=== PATIENT | male | born 1995 | race Caucasian/White ===

== ENCOUNTER 2016-08-29 18:25 | Emergency (ER) ==
[2016-08-29] MEDS ORDERED: diphenhydrAMINE 25 MG CAP As Ordered ONE (20:17)
[2016-08-29] MEDS ORDERED: predniSONE 20 MG TAB As Ordered ONE (20:18)
[2016-08-29] MEDS ORDERED: OMEPRAZOLE 20 MG CAP As Ordered ONE (20:20)
--- NOTE | 2016-08-29 20:31 | EDDOCDS ---
Physician Documentation [facility] Name: oJse Washburn Age: 21 yrs Sex: Male : 1995 Arrival Date: 08/29/2016 Time: 18:25 Bed I10 / 23 Private MD: CABRERA Crowell Disposition: 08/29/16 20:17 Discharged to Home/Self Care. Impression: Contact urticaria. - Condition is Stable. - Discharge Instructions: Contact Dermatitis. - Prescriptions for Prilosec 20 mg Oral Capsule - take 1 capsule by ORAL route once daily; 10 capsule. Prednisone 10 mg Oral Tablet - take 1 tablet by ORAL route as directed Day1-3:6 po,day4-5:5 po,day6-7: 4 po,day8-9:3 po,dxm17-30:2 po,day 12-14:1 po; 49 tablet. diphenhydramine HCl 50 mg Oral Capsule - take 1 capsule by ORAL route every 6 hours As needed; 30 capsule. - Medication Reconciliation, Local Pharmacy Hours form. - Follow up: CABRERA Crowell; When: 4 - 5 days; Reason: Recheck today's complaints, Continuance of care. - Problem is an acute exacerbation. - Symptoms are unchanged. Historical: - Allergies: no known allergies; - Home Meds: 1. none - PMHx: none; - PSHx: Hernia repair; - Social history: Smoking status: Patient states was never smoker of tobacco. No barriers to communication noted, The patient speaks fluent Bulgarian, Speaks appropriately for age. - Family history: Not pertinent. - : The pt / caregiver states he / she is not on anticoagulants. Home medication list is obtained from the patient. - Exposure Risk Screening:: None identified. Vital Signs: 08/29 18:28 BP 169 / 92; Pulse 77; Resp 16; Temp 96.5; Pulse Ox 100% ; Weight 81.65 kg / 180.01 elp lbs; Height 5 ft. 9 in. (175.26 cm); Pain 0/10; 18:28 Body Mass Index 26.58 (81.65 kg, 175.26 cm) elp MDM: 20:12 predniSONE 60 mg PO once; administer with food or milk ordered. ke 20:12 diphenhydrAMINE 50 mg PO once ordered. ke 20:12 omeprazole Delayed Release Capsule 20 mg PO once; swallow whole (do not crush or chew) ke OR open capsule, sprinkle contents over tablespoonful applesauce; swallow all immediately/do not chew pellets ordered. Administered Medications: 20:25 Drug: predniSONE 60 mg [prednisone 20 mg tablet (3 tabs)] Route: PO; cz 20:25 Drug: diphenhydrAMINE 50 mg [diphenhydramine 25 mg capsule (2 caps)] Route: PO; cz 20:25 Drug: omeprazole 20 mg [omeprazole 20 mg capsule,delayed release (1 caps)] Route: PO; cz Signatures: Linh Christensen RN RN srm Zecher, Calvin, RN RN cz Elsner, Karl, GARY RASPER MACHINE OPERATOR ke MTDD
--- NOTE | 2016-08-29 20:31 | EDDOCDS ---
Nurse's Notes [facility] Name: Jose Washburn Age: 21 yrs Sex: Male : 1995 Arrival Date: 08/29/2016 Time: 18:25 Bed I10 / 23 Private MD: CABRERA Crowell Diagnosis: Contact urticaria Presentation: 08/29 18:29 Presenting complaint: Patient states: ? poison oak- exposure 6 days. hives and swelling srm to hands and up arms. pt states its also on his "private area'. itchy. Presenting complaint: Patient states: was given benadryl and hydrocortisone cream by his medics. 18:29 Acuity: LINA Level 4 srm 18:29 Adult Sepsis Screening: The patient does not have new or worsening altered mentation. srm Patient's respiratory rate is less than 22. Systolic blood pressure is greater than 100. Patient has a qSOFA score of 0- Negative Sepsis Screen. Suicide/Homicide risk assessment- the patient denies having any suicidal and/or homicidal ideations and does not present with any other emotional, behavioral or mental health complaints. Status: The patient is an active duty director construction services. Transition of care: patient was not received from another setting of care. 18:29 Method Of Arrival: Walkin/Carried/[facility]std [facility] Triage Assessment: 18:32 General: Appears in no apparent distress, Behavior is appropriate for age, cooperative. srm Pain: Denies pain. 18:32 Pt Declines HIV testing. srm Historical: - Allergies: no known allergies; - Home Meds: 1. none - PMHx: none; - PSHx: Hernia repair; - Social history: Smoking status: Patient states was never smoker of tobacco. No barriers to communication noted, The patient speaks fluent Amharic, Speaks appropriately for age. - Family history: Not pertinent. - : The pt / caregiver states he / she is not on anticoagulants. Home medication list is obtained from the patient. - Exposure Risk Screening:: None identified. Screenin:29 Screening information is obtained from the patient. Fall risk: No risks identified. cz Assistance ADL's: requires no assistance with activities of daily living. Abuse/DV Screen: The patient / caregiver reports he/she is: not in a situation that causes fear, pain or injury. Nutritional screening: No deficits noted. home support is adequate. Assessment: 20:29 General: alert male with swelling and redness to bliateral hands. cz Vital Signs: 18:28 BP 169 / 92; Pulse 77; Resp 16; Temp 96.5; Pulse Ox 100% ; Weight 81.65 kg; Height 5 elp ft. 9 in. (175.26 cm); Pain 0/10; 18:28 Body Mass Index 26.58 (81.65 kg, 175.26 cm) elp Vitals: 18:28 Log In Time: August 29, 2016 at 18:26. elp ED Course: 18:27 Patient visited by Rahel Gonzalez PCA. elp 18:27 [facility] [place] [facility] is Private Physician. elp 18:27 Patient moved to Waiting elp 18:28 Patient visited by Rahel Gonzalez PCA. elp 18:28 Patient moved to Pre RCE elp 18:31 Triage Initiated srm 19:45 [facility] ke 19:45 Patient visited by Manjit Leyva FNP. ke 19:45 Patient visited by Manjit Leyva FNP. ke 19:45 Patient moved to I10 / 23 dsf 20:17 Socrates [facility] [place] [facility] is Referral Physician. ke 20:29 The patient / caregiver is instructed regarding the plan of care and ED course. cz 20:29 No IV's were initiated during this patient's visit. No procedures done that require cz assistance. Administered Medications: 20:25 Drug: predniSONE 60 mg [prednisone 20 mg tablet (3 tabs)] Route: PO; cz 20:25 Drug: diphenhydrAMINE 50 mg [diphenhydramine 25 mg capsule (2 caps)] Route: PO; cz 20:25 Drug: omeprazole 20 mg [omeprazole 20 mg capsule,delayed release (1 caps)] Route: PO; cz Order Results: There are currently no results for this order. Outcome: 20:17 Discharge ordered by Provider. ke 20:28 Discharge Assessment: Patient awake, alert and oriented x 3. No cognitive and/or cz functional deficits noted. Patient verbalized understanding of disposition instructions. patient administered narcotics - no. The following High Risk Discharge criteria are identified: None. Discharged to home ambulatory, with significant other. Condition: stable. Discharge instructions given to patient, Instructed on discharge instructions, follow up and referral plans. medication usage, Demonstrated understanding of instructions, medications, Pt was receptive of discharge instructions/ teaching. Prescriptions given X 3. No special radiology studies were completed. Property :Personal belongings accompany Pt. 20:30 Patient left the ED. cz Signatures: Linh Christensen, RN RN Conrad Ku RN RN Manjit Javier, MECHANICAL ENGINEERING COOP MECHANICAL ENGINEERING COOP Susanna Huff RN RN dsf Patchen, Erin, PCA PCA elp MTDD
--- NOTE | 2016-08-31 21:31 | EDDOCDS ---
Nurse's Notes [facility] Name: Jose Washburn Age: 21 yrs Sex: Male : 1995 Arrival Date: 08/29/2016 Time: 18:25 Bed I10 / 23 Private MD: CABRERA Crowell Diagnosis: Contact urticaria Presentation: 08/29 18:29 Presenting complaint: Patient states: ? poison oak- exposure 6 days. hives and swelling srm to hands and up arms. pt states its also on his "private area'. itchy. Presenting complaint: Patient states: was given benadryl and hydrocortisone cream by his medics. 18:29 Acuity: LINA Level 4 srm 18:29 Adult Sepsis Screening: The patient does not have new or worsening altered mentation. srm Patient's respiratory rate is less than 22. Systolic blood pressure is greater than 100. Patient has a qSOFA score of 0- Negative Sepsis Screen. Suicide/Homicide risk assessment- the patient denies having any suicidal and/or homicidal ideations and does not present with any other emotional, behavioral or mental health complaints. Status: The patient is an active duty coordinator volunteer services. Transition of care: patient was not received from another setting of care. 18:29 Method Of Arrival: Walkin/Carried/[facility]std [facility] Triage Assessment: 18:32 General: Appears in no apparent distress, Behavior is appropriate for age, cooperative. srm Pain: Denies pain. 18:32 Pt Declines HIV testing. srm Historical: - Allergies: no known allergies; - Home Meds: 1. none - PMHx: none; - PSHx: Hernia repair; - Social history: Smoking status: Patient states was never smoker of tobacco. No barriers to communication noted, The patient speaks fluent Kinyarwanda, Speaks appropriately for age. - Family history: Not pertinent. - : The pt / caregiver states he / she is not on anticoagulants. Home medication list is obtained from the patient. - Exposure Risk Screening:: None identified. Screenin:29 Screening information is obtained from the patient. Fall risk: No risks identified. cz Assistance ADL's: requires no assistance with activities of daily living. Abuse/DV Screen: The patient / caregiver reports he/she is: not in a situation that causes fear, pain or injury. Nutritional screening: No deficits noted. home support is adequate. Assessment: 20:29 General: alert male with swelling and redness to bliateral hands. cz Vital Signs: 18:28 BP 169 / 92; Pulse 77; Resp 16; Temp 96.5; Pulse Ox 100% ; Weight 81.65 kg; Height 5 elp ft. 9 in. (175.26 cm); Pain 0/10; 18:28 Body Mass Index 26.58 (81.65 kg, 175.26 cm) elp Vitals: 18:28 Log In Time: August 29, 2016 at 18:26. elp ED Course: 18:27 Patient visited by Rahel Gonzalez PCA. elp 18:27 [facility] [place] Private Physician. elp 18:27 Patient moved to Waiting elp 18:28 Patient visited by Rahel Gonzalez PCA. elp 18:28 Patient moved to Pre RCE elp 18:31 Triage Initiated srm 19:45 [facility] ke 19:45 Patient visited by Manjit Leyva FNP. ke 19:45 Patient visited by Manjit Leyva FNP. ke 19:45 Patient moved to I10 / 23 dsf 20:17 NICOLAS Crowell is Referral Physician. ke 20:29 The patient / caregiver is instructed regarding the plan of care and ED course. cz 20:29 No IV's were initiated during this patient's visit. No procedures done that require cz assistance. 08/30 10:14 T-Sheet-- Draft Copy was scanned into [employer] and attached to record. gb Administered Medications: 08/29 20:25 Drug: predniSONE 60 mg [prednisone 20 mg tablet (3 tabs)] Route: PO; cz 20:25 Drug: diphenhydrAMINE 50 mg [diphenhydramine 25 mg capsule (2 caps)] Route: PO; cz 20:25 Drug: omeprazole 20 mg [omeprazole 20 mg capsule,delayed release (1 caps)] Route: PO; cz Order Results: There are currently no results for this order. Outcome: 20:17 Discharge ordered by Provider. ke 20:28 Discharge Assessment: Patient awake, alert and oriented x 3. No cognitive and/or cz functional deficits noted. Patient verbalized understanding of disposition instructions. patient administered narcotics - no. The following High Risk Discharge criteria are identified: None. Discharged to home ambulatory, with significant other. Condition: stable. Discharge instructions given to patient, Instructed on discharge instructions, follow up and referral plans. medication usage, Demonstrated understanding of instructions, medications, Pt was receptive of discharge instructions/ teaching. Prescriptions given X 3. No special radiology studies were completed. Property :Personal belongings accompany Pt. 20:30 Patient left the ED. cz Signatures: Linh Christensen, RN Conrad Knapp RN RN Shawna King, Tyler Reg Manjit Weber, NUCLEAR REACTOR OPERATOR NUCLEAR REACTOR OPERATORSusanna Dimas RN RN Rahel Harris, EFRAIN WORKERS COMPENSATION EXAMINER elp Chart Complete MTDD
--- NOTE | 2016-08-31 21:31 | EDDOCDS ---
Physician Documentation [facility] Name: Jose Washburn Age: 21 yrs Sex: Male : 1995 Arrival Date: 08/29/2016 Time: 18:25 Bed I10 / 23 Private MD: CABRERA Crowell Disposition: 08/29/16 20:17 Discharged to Home/Self Care. Impression: Contact urticaria. - Condition is Stable. - Discharge Instructions: Contact Dermatitis. - Prescriptions for Prilosec 20 mg Oral Capsule - take 1 capsule by ORAL route once daily; 10 capsule. Prednisone 10 mg Oral Tablet - take 1 tablet by ORAL route as directed Day1-3:6 po,day4-5:5 po,day6-7: 4 po,day8-9:3 po,qgn58-46:2 po,day 12-14:1 po; 49 tablet. diphenhydramine HCl 50 mg Oral Capsule - take 1 capsule by ORAL route every 6 hours As needed; 30 capsule. - Medication Reconciliation, Local Pharmacy Hours form. - Follow up: CABRERA Crowell; When: 4 - 5 days; Reason: Recheck today's complaints, Continuance of care. - Problem is an acute exacerbation. - Symptoms are unchanged. Historical: - Allergies: no known allergies; - Home Meds: 1. none - PMHx: none; - PSHx: Hernia repair; - Social history: Smoking status: Patient states was never smoker of tobacco. No barriers to communication noted, The patient speaks fluent Albanian, Speaks appropriately for age. - Family history: Not pertinent. - : The pt / caregiver states he / she is not on anticoagulants. Home medication list is obtained from the patient. - Exposure Risk Screening:: None identified. Vital Signs: 08/29 18:28 BP 169 / 92; Pulse 77; Resp 16; Temp 96.5; Pulse Ox 100% ; Weight 81.65 kg / 180.01 elp lbs; Height 5 ft. 9 in. (175.26 cm); Pain 0/10; 18:28 Body Mass Index 26.58 (81.65 kg, 175.26 cm) elp MDM: 20:12 predniSONE 60 mg PO once; administer with food or milk ordered. ke 20:12 diphenhydrAMINE 50 mg PO once ordered. ke 20:12 omeprazole Delayed Release Capsule 20 mg PO once; swallow whole (do not crush or chew) ke OR open capsule, sprinkle contents over tablespoonful applesauce; swallow all immediately/do not chew pellets ordered. 08/30 10:14 T-Sheet-- Draft Copy was scanned into [employer] and attached to record. gb Administered Medications: 08/29 20:25 Drug: predniSONE 60 mg [prednisone 20 mg tablet (3 tabs)] Route: PO; cz 20:25 Drug: diphenhydrAMINE 50 mg [diphenhydramine 25 mg capsule (2 caps)] Route: PO; cz 20:25 Drug: omeprazole 20 mg [omeprazole 20 mg capsule,delayed release (1 caps)] Route: PO; cz Signatures: Linh Christensen RN RN srm Zecher, Calvin, RN RN cz Barnhardt, Gloria, Reg Reg gb Manjit Leyva, SUPERVISOR METER SHOP SUPERVISOR METER SHOP cj The chart was reviewed and I authenticate all verbal orders and agree with the evaluation and treatment provided.Attachments: 08/30 10:14 T-Sheet-- Draft Copy Chart Complete MTDD
--- NOTE | 2016-08-31 21:31 | EDDOCDS ---
Physician Documentation [facility] Name: Jose Washburn Age: 21 yrs Sex: Male : 1995 Arrival Date: 08/29/2016 Time: 18:25 Bed I10 / 23 Private MD: CABRERA Crowell Disposition: 08/29/16 20:17 Discharged to Home/Self Care. Impression: Contact urticaria. - Condition is Stable. - Discharge Instructions: Contact Dermatitis. - Prescriptions for Prilosec 20 mg Oral Capsule - take 1 capsule by ORAL route once daily; 10 capsule. Prednisone 10 mg Oral Tablet - take 1 tablet by ORAL route as directed Day1-3:6 po,day4-5:5 po,day6-7: 4 po,day8-9:3 po,mjh19-91:2 po,day 12-14:1 po; 49 tablet. diphenhydramine HCl 50 mg Oral Capsule - take 1 capsule by ORAL route every 6 hours As needed; 30 capsule. - Medication Reconciliation, Local Pharmacy Hours form. - Follow up: CABRERA Crowell; When: 4 - 5 days; Reason: Recheck today's complaints, Continuance of care. - Problem is an acute exacerbation. - Symptoms are unchanged. Historical: - Allergies: no known allergies; - Home Meds: 1. none - PMHx: none; - PSHx: Hernia repair; - Social history: Smoking status: Patient states was never smoker of tobacco. No barriers to communication noted, The patient speaks fluent Korean, Speaks appropriately for age. - Family history: Not pertinent. - : The pt / caregiver states he / she is not on anticoagulants. Home medication list is obtained from the patient. - Exposure Risk Screening:: None identified. Vital Signs: 08/29 18:28 BP 169 / 92; Pulse 77; Resp 16; Temp 96.5; Pulse Ox 100% ; Weight 81.65 kg / 180.01 elp lbs; Height 5 ft. 9 in. (175.26 cm); Pain 0/10; 18:28 Body Mass Index 26.58 (81.65 kg, 175.26 cm) elp MDM: 20:12 predniSONE 60 mg PO once; administer with food or milk ordered. ke 20:12 diphenhydrAMINE 50 mg PO once ordered. ke 20:12 omeprazole Delayed Release Capsule 20 mg PO once; swallow whole (do not crush or chew) ke OR open capsule, sprinkle contents over tablespoonful applesauce; swallow all immediately/do not chew pellets ordered. 08/30 10:14 T-Sheet-- Draft Copy was scanned into [employer] and attached to record. gb Administered Medications: 08/29 20:25 Drug: predniSONE 60 mg [prednisone 20 mg tablet (3 tabs)] Route: PO; cz 20:25 Drug: diphenhydrAMINE 50 mg [diphenhydramine 25 mg capsule (2 caps)] Route: PO; cz 20:25 Drug: omeprazole 20 mg [omeprazole 20 mg capsule,delayed release (1 caps)] Route: PO; cz Signatures: Linh Christensen RN RN srm Zecher, Calvin, RN RN cz Barnhardt, Gloria, Reg Reg gb Manjit Leyva, EQUIPMENT OR MACHINERY CLEANER EQUIPMENT OR MACHINERY CLEANER cj The chart was reviewed and I authenticate all verbal orders and agree with the evaluation and treatment provided.Attachments: 08/30 10:14 T-Sheet-- Draft Copy Chart Complete MTDD
== END 2016-08-29 20:30 | disposition home or self-care (01) ==
LOC: M ED 18:25
DX: L23.7 Allergic contact dermatitis due to plants, except food (principal)

== ENCOUNTER → 2016-09-25 | Outpatient (CLI) | payer OTHER ==
--- NOTE | 2016-09-26 07:07 | REP ---
Left foot series: Four views. History: Left foot pain. Possible sewing needle in the left foot. Findings: Four views of the left foot demonstrate a metallic foreign body consistent with a needle fragment measuring 14 mm in length imbedded in the soft tissues of the left foot along and possibly within the volar aspect of the first metatarsophalangeal joint. No soft tissue gas is seen. No fracture is noted. Impression: 14 mm needle fragment imbedded in the soft tissues along, and possibly within the volar aspect of the first MTP joint. Signed by Donny Soto MD 09/26/2016 08:31 A
== END ==
LOC: M LRY 19:39
PROVIDERS: ATTEND Physician Assistant
DX: M79.672 Pain in left foot (principal); S90.852A Superficial foreign body, left foot, initial encounter; X58.XXXA Exposure to other specified factors, initial encounter; Y92.9 Unspecified place or not applicable; Y93.9 Activity, unspecified; Y99.9 Unspecified external cause status
CPT/HCPCS: 73630; G0463